=== PATIENT | female | born 1995 | race Caucasian/White ===

== ENCOUNTER 2021-10-29 06:18 | Emergency (ER) | payer BC ==
[~2021-10-29] VITALS: Ht 167.6 cm; Wt 63.6 kg
[2021-10-29 06:48] VITALS: BP 118/80
[2021-10-29] MEDS ORDERED: pantoprazole 40MG/NS 100ML BAG 100 ML IV ONE (07:00)
[2021-10-29] MEDS ORDERED: LIDOcaine 1% w/EPI 1:100,000 30ml vial (MDV) IJ ONE (07:00)
[2021-10-29] MEDS ORDERED: ondansetron/PF 4mg/2ml inj IV ONE (07:00)
--- NOTE | 2021-10-29 07:24 | NUR ---
medications Y-site compatible per [employer] site.
--- NOTE | 2021-10-29 07:55 | NUR ---
patient amb to room, c/o dogbite to right forearm yesterday evening. 2 puncture sites noted and swelling to forearm noted. c/o mild discomfort 04/15.
[2021-10-29] MEDS ORDERED: ampicillin/sulbac 3gm/NS 100ml 100 ML IV SCH (08:00)
[2021-10-29] MEDS ORDERED: AMOX-117 PO (08:04)
== END 2021-10-29 09:00 | disposition home or self-care (01) ==
LOC: ER 06:19
DX: S51.831A Puncture wound without foreign body of right forearm, initial encounter (principal); Z79.2 Long term (current) use of antibiotics; W54.0XXA Bitten by dog, initial encounter; Y93.89 Activity, other specified; Y92.89 Other specified places as the place of occurrence of the external cause; Y99.8 Other external cause status
CPT/HCPCS: 29125; 73090; 96365; 96366; 96368; 96375; 99284; A6223; C9113; J0295; J2405; J7030; L3908; A6222; A6449